=== PATIENT | male | born 1985 | race Caucasian/White ===

== ENCOUNTER 2019-02-10 09:20 | Emergency (ER) | payer OTHER ==
[2019-02-10 09:36] VITALS: RESP 18
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
[2019-02-10 11:01] LABS: Basophils % (A) 0 %; Eosinophils # (A) 0.2 k/uL (0-0.7); Eosinophils % (A) 2 %; HCT 40.6 % (39.0-53.0); HGB 13.3 gm/dL (13.0-17.5); Lymphocytes # (A) 2.1 k/uL (1.0-4.8); Lymphocytes % (A) 30 %; MCH 27.7 pg (25.0-35.0); MCHC 32.8 g/dL (31.0-37.0); MCV 84.4 fL (80.0-100.0); Mean Platelet Volume 6.4; Monocytes # (A) 0.4 k/uL (0-1.0); Monocytes % (A) 6 %; Neutrophils # (A) 4.2 k/uL (1.3-7.7); Neutrophils % (A) 60 %; Platelet Count 244 k/uL (150-450); RBC 4.81 m/uL (4.30-5.90); RDW 13.8 % (11.5-15.5)
--- NOTE | 2019-02-10 11:11 | XR ---
EXAMINATION TYPE: XR chest 2V DATE OF EXAM: 02/10/2019 COMPARISON: NONE TECHNIQUE: PA and lateral views submitted. HISTORY: Pain FINDINGS: The lungs are clear and there is no pneumothorax, pleural effusion, or focal pneumonia. There is in creased density along the right paratracheal line which could be related to superimposed structures. IMPRESSION: 1. Increased density along the right paratracheal and may be related to superimposed structures. If t here is pain in this region then correlate with CT chest.
[2019-02-10 11:19] LABS: ALT 31 U/L (21-72); AST 32 U/L (17-59); African American GFR (CKD) >90 (>60 ml/min/1.73 sqM); Albumin 3.9 g/dL (3.5-5.0); Alkaline Phosphatase 95 U/L (38-126); Anion Gap 6 mmol/L; Blood Urea Nitrogen 19 mg/dL (9-20); Calcium 8.9 mg/dL (8.4-10.2); Carbon Dioxide 29 mmol/L (22-30); Chloride 104 mmol/L (98-107); Glucose 93 mg/dL (74-99); Potassium 4.6 mmol/L (3.5-5.1); Sodium 139 mmol/L (137-145); Total Bilirubin 0.3 mg/dL (0.2-1.3); Total Protein 6.6 g/dL (6.3-8.2)
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
[2019-02-10] MEDS ORDERED: ACET/COD 120MG/12MG LIQ 5ML CUP PO ONE (12:42)
[2019-02-10 13:29] VITALS: BP 136/85; PULSE 50
[2019-02-10 14:02] VITALS: TEMP 98.1
== END 2019-02-10 14:01 | disposition home or self-care (01) ==
LOC: EC 09:20
DX: S22.41XA Multiple fractures of ribs, right side, initial encounter for closed fracture (principal); S11.81XA Laceration without foreign body of other specified part of neck, initial encounter; F17.200 Nicotine dependence, unspecified, uncomplicated; Z53.29 Procedure and treatment not carried out because of patient's decision for other reasons; V86.59XA Driver of other special all-terrain or other off-road motor vehicle injured in nontraffic accident, initial encounter
CPT/HCPCS: 36415; 80053; 85025; 71046; 70491; 71250; 99284; Q9967